=== PATIENT | female | born 1975 | race Caucasian/White ===

== ENCOUNTER 2021-07-17 16:39 | Emergency (ER) | payer OTHER ==
[~2021-07-17] VITALS: Ht 160 cm; Wt 124.0 kg
[2021-07-17] MEDS ORDERED: SODIUM CHLORIDE 0.9% 1,000 ML IV ONE (17:30)
[2021-07-17 17:55] LABS: BASOPHILS % 0.4 % (0.0-2.0); EOSINOPHILS % 5.5 % (0.0-5.0); HEMATOCRIT. 32.4 % (36.0-48.0); HEMOGLOBIN. 11.2 g/dL (12.0-16.0); LYMPHOCYTES % 26.7 % (20.0-50.0); MEAN CORPUSCULAR VOLUME 86.8 fL (81.0-99.0); MEAN PLATELET VOLUME 8.9 fl (7.4-10.4); MONOCYTES % 7.3 % (2.0-8.0); NEUTROPHILS % 60.1 % (40.0-76.0); PLATELET 163 x1000/uL (130-400); RED BLOOD CELL COUNT 3.74 mill/uL (4.2-5.4); RED CELL DISTRIBUTION WIDTH 15.1 % (11.6-14.6)
[2021-07-17 18:03] LABS: CHLORIDE 110 mEq/L (98-107)
[2021-07-17 18:07] LABS: ETHANOL BLOOD < 10 mg/dL
[2021-07-17 18:07] LABS: CLARITY URINE CLOUDY (CLEAR); COLOR URINE YELLOW (YELLOW); KETONES URINE NEGATIVE (NEGATIVE); LEUKOCYTE ESTERASE URINE 1+ (NEGATIVE); NITRITE URINE NEGATIVE (NEGATIVE); OCCULT BLOOD URINE NEGATIVE (NEGATIVE); PH URINE 6.5 (4.5-8.0); PROTEIN URINE NEGATIVE (NEGATIVE); SPECIFIC GRAVITY URINE 1.008 (1.005-1.030); UROBILINOGEN URINE 0.2 E.U./dL (0.2-1.0)
[2021-07-17 18:32] LABS: *AMPHETAMINES SCREEN URINE NEGATIVE (NEGATIVE)
[2021-07-17 18:33] LABS: *BARBITURATES SCREEN URINE NEGATIVE (NEGATIVE); *COCAINE SCREEN URINE NEGATIVE (NEGATIVE); METHADONE URINE SCREEN NEGATIVE (NEGATIVE); OPIATES URINE SCREEN NEGATIVE (NEGATIVE); PHENCYCLIDINE URINE SCREEN NEGATIVE (NEGATIVE)
[2021-07-17 18:34] LABS: CANNABINOID URINE SCREEN NEGATIVE (NEGATIVE)
[2021-07-17 18:37] LABS: *BENZODIAZEPINES SCREEN URINE PRESUMTIVE POSITIVE (NEGATIVE)
[2021-07-18] MEDS ORDERED: CEPHALEXIN 250MG CAPSULE PO SCH (04:20)
[2021-07-18] MEDS ORDERED: LORAZEPAM 2MG/ML CPJ IM SCH (04:30)
[2021-07-18] MEDS: CEPHALEXIN 250MG CAPSULE PO SCH ×2 (09:24→21:00)
[2021-07-18] MEDS ORDERED: ARIPIPRAZOLE 5MG TABLET PO SCH (10:15)
[2021-07-18] MEDS ORDERED: LITHIUM CARBONATE 150 MG CAPSULE PO SCH (17:00)
[2021-07-18] MEDS ORDERED: QUETIAPINE FUMARATE 50MG TABLET PO SCH (21:00)
[2021-07-19 01:24] VITALS: BP 145/82
== END 2021-07-19 03:40 ==
LOC: EDBD 16:39 → ER 16:39
DX: R45.851 Suicidal ideations (principal); F32.9 Major depressive disorder, single episode, unspecified; E11.9 Type 2 diabetes mellitus without complications
CPT/HCPCS: 36415; 80053; 80305; 80307; 80320; 80329; 81003; 81025; 85025; 93005; 99285; J7030; Z7610; G0480

== ENCOUNTER 2022-01-07 08:59 | Emergency (ER) | payer MEDICAID, OTHER ==
[~2022-01-07] VITALS: Ht 157.5 cm; Wt 123.0 kg
[2022-01-07] MEDS ORDERED: KETOROLAC 15MG/ML VIAL IV ONE (09:15)
[2022-01-07] MEDS ORDERED: SODIUM CHLORIDE 0.9% 1,000 ML IV ONE (09:15)
[2022-01-07] MEDS ORDERED: ONDANSETRON HCL 4MG/2ML INJ IV ONE (09:15)
[2022-01-07] MEDS ORDERED: ASPIRIN 81MG TABLET PO ONE (09:15)
[2022-01-07 10:22] LABS: BASOPHILS % 0.6 % (0.0-2.0); EOSINOPHILS % 3.3 % (0.0-5.0); HEMATOCRIT. 35.2 % (36.0-48.0); HEMOGLOBIN. 12.4 g/dL (12.0-16.0); LYMPHOCYTES % 22.8 % (20.0-50.0); MEAN CORPUSCULAR HEMOGLOBIN 30.1 pg (28.0-32.0); MEAN CORPUSCULAR VOLUME 85.2 fL (81.0-99.0); MEAN PLATELET VOLUME 9.1 fl (7.4-10.4); MONOCYTES % 5.6 % (2.0-8.0); NEUTROPHILS % 67.7 % (40.0-76.0); PLATELET 196 x1000/uL (130-400); RED BLOOD CELL COUNT 4.13 mill/uL (4.2-5.4); RED CELL DISTRIBUTION WIDTH 14.5 % (11.6-14.6)
[2022-01-07 10:27] LABS: CHLORIDE 103 mEq/L (98-107)
[2022-01-07 10:42] LABS: CLARITY URINE CLEAR (CLEAR); COLOR URINE YELLOW (YELLOW); KETONES URINE NEGATIVE (NEGATIVE); LEUKOCYTE ESTERASE URINE NEGATIVE (NEGATIVE); NITRITE URINE NEGATIVE (NEGATIVE); OCCULT BLOOD URINE 2+ (NEGATIVE); PROTEIN URINE NEGATIVE (NEGATIVE); SPECIFIC GRAVITY URINE 1.024 (1.005-1.030); UROBILINOGEN URINE 0.2 E.U./dL (0.2-1.0)
[2022-01-07] MEDS ORDERED: MORPHINE SULFATE 4 MG/ML CPJ (NOT FOR IM USE) IV ONE (12:30)
[2022-01-07] MEDS ORDERED: HYDROCODONE/ACETAMINOPHEN 5/325MG TABLET PO ONE (15:00)
[2022-01-07] MEDS ORDERED: IOHEXOL-350 100 ML BOTTLE ONE (15:22)
[2022-01-07] MEDS ORDERED: HYDR-4001 MT (15:47)
[2022-01-07 17:06] VITALS: BP 143/85
== END 2022-01-07 17:07 | disposition home or self-care (01) ==
LOC: ER 15:02
DX: R07.89 Other chest pain (principal); Z20.822 Contact with and (suspected) exposure to COVID-19
CPT/HCPCS: 36415; 71045; 71275; 80053; 81003; 81025; 82962; 83880; 84484; 85025; 85379; 87426; 87804; 93005; 96361; 96374; 96375; 99285; J1885; J2270; J2405; J7030; Q9967; Z7610

== ENCOUNTER 2022-02-02 15:44 | Emergency (ER) | payer MEDICAID ==
[~2022-02-02] VITALS: Ht 167.6 cm; Wt 101.0 kg
[~2022-02-02 15:44] MED LIST: HYDR-4001 MT
[2022-02-02] MEDS ORDERED: SODIUM CHLORIDE 0.9% 1,000 ML IV ONE (16:30)
[2022-02-02] MEDS ORDERED: NITROGLYCERIN OINT 1GM/INCH UDPKT TD ONE (16:30)
[2022-02-02] MEDS ORDERED: CEFTRIAXONE 1 G PREMIX 50 ML IV ONE (16:30)
[2022-02-02 16:58] LABS: BASOPHILS % 0.6 % (0.0-2.0); EOSINOPHILS % 3.5 % (0.0-5.0); HEMATOCRIT. 37.3 % (36.0-48.0); HEMOGLOBIN. 12.3 g/dL (12.0-16.0); LYMPHOCYTES % 22.3 % (20.0-50.0); MEAN CORPUSCULAR HEMOGLOBIN 28.9 pg (28.0-32.0); MEAN CORPUSCULAR VOLUME 87.6 fL (81.0-99.0); MEAN PLATELET VOLUME 10.3 fl (7.4-10.4); MONOCYTES % 6.6 % (2.0-8.0); PLATELET 149 x1000/uL (130-400); RED BLOOD CELL COUNT 4.26 mill/uL (4.2-5.4); RED CELL DISTRIBUTION WIDTH 14.3 % (11.6-14.6)
[2022-02-02 17:00] LABS: CLARITY URINE CLEAR (CLEAR); COLOR URINE YELLOW (YELLOW); KETONES URINE NEGATIVE (NEGATIVE); LEUKOCYTE ESTERASE URINE NEGATIVE (NEGATIVE); NITRITE URINE NEGATIVE (NEGATIVE); OCCULT BLOOD URINE NEGATIVE (NEGATIVE); PH URINE 6.5 (4.5-8.0); PROTEIN URINE NEGATIVE (NEGATIVE); SPECIFIC GRAVITY URINE 1.034 (1.005-1.030); UROBILINOGEN URINE 0.2 E.U./dL (0.2-1.0)
[2022-02-02 17:01] LABS: CHLORIDE 98 mEq/L (98-107)
[2022-02-02 17:12] LABS: BETA HYDROXYBUTYRATE 0.1 mMol/L (0.0-0.3)
[2022-02-02] MEDS ORDERED: INSULIN REGULAR (HUMULIN R) 300UNITS/3ML VIAL SUBCUT NR (17:45)
[2022-02-02 20:18] VITALS: BP 140/88
== END 2022-02-02 20:20 | disposition left against medical advice (07) ==
LOC: ER 15:44 → EDBEDREQTM 17:38 → EDBEDREQ 17:38 → ER 20:20 → CANBEDREQ 02-03 00:29
DX: R07.89 Other chest pain (principal); E11.65 Type 2 diabetes mellitus with hyperglycemia; L02.211 Cutaneous abscess of abdominal wall; F32.9 Major depressive disorder, single episode, unspecified; E78.00 Pure hypercholesterolemia, unspecified
CPT/HCPCS: 36415; 71045; 80053; 81003; 82010; 82962; 84484; 85025; 87040; 96365; 96372; 99284; J0696; J1815; J7030

== ENCOUNTER 2022-11-11 14:42 | Emergency (ER) | payer OTHER ==
[~2022-11-11] VITALS: Ht 154.9 cm; Wt 79.0 kg
[2022-11-11 15:30] VITALS: BP 145/85
[2022-11-11] MEDS ORDERED: IBUPROFEN 400MG TABLET PO ONE (18:30)
[2022-11-11] MEDS ORDERED: HYDR-4001 MT (19:54)
[2022-11-11] MEDS ORDERED: IBUP-2028 MT (19:54)
== END 2022-11-12 00:01 | disposition home or self-care (01) ==
LOC: ER 14:42
DX: S52.512A Displaced fracture of left radial styloid process, initial encounter for closed fracture (principal); F32.A Depression, unspecified; E11.9 Type 2 diabetes mellitus without complications; E78.00 Pure hypercholesterolemia, unspecified; Z85.528 Personal history of other malignant neoplasm of kidney; Z88.8 Allergy status to other drugs, medicaments and biological substances; W01.0XXA Fall on same level from slipping, tripping and stumbling without subsequent striking against object, initial encounter; Y93.89 Activity, other specified; Y92.018 Other place in single-family (private) house as the place of occurrence of the external cause
CPT/HCPCS: 29125; 73090; 73110; 73130; 99284

== ENCOUNTER 2023-04-03 10:53 | Emergency (ER) | payer OTHER ==
[~2023-04-03] VITALS: Ht 167.6 cm; Wt 93.0 kg
[~2023-04-03 10:53] MED LIST changes: +IBUP-2028 MT
[2023-04-03 10:57] VITALS: BP 135/88
== END 2023-04-03 11:47 | disposition left against medical advice (07) ==
LOC: ER 10:53
DX: T43.221A Poisoning by selective serotonin reuptake inhibitors, accidental (unintentional), initial encounter (principal); X58.XXXA Exposure to other specified factors, initial encounter; F32.9 Major depressive disorder, single episode, unspecified; E11.9 Type 2 diabetes mellitus without complications; E78.00 Pure hypercholesterolemia, unspecified
CPT/HCPCS: 99283

== ENCOUNTER 2024-03-07 06:13 | Emergency (ER) | payer OTHER ==
[~2024-03-07] VITALS: Ht 172.7 cm; Wt 103.0 kg
[2024-03-07 06:17] VITALS: O2SAT 99
[2024-03-07] MEDS ORDERED: ONDANSETRON HCL 4MG/2ML INJ IV STA (06:24)
[2024-03-07] MEDS ORDERED: KETOROLAC 30MG/ML VIAL IV STA (06:24)
[2024-03-07 08:36] LABS: CHLORIDE 102 mEq/L (98-107); POTASSIUM 3.7 mEq/L (3.5-5.1); SODIUM 134 mEq/L (136-145)
[2024-03-07 08:37] LABS: CALCIUM 8.6 mg/dL (8.7-10.4); CARBON DIOXIDE 25 mEq/L (21-32)
[2024-03-07 08:38] LABS: BASOPHILS % 0.9 % (0.0-2.0); EOSINOPHILS % 13.9 % (0.0-5.0); HEMATOCRIT. 36.7 % (36.0-48.0); HEMOGLOBIN. 12.1 g/dL (12.0-16.0); LYMPHOCYTES % 42.8 % (20.0-50.0); MEAN CORPUSCULAR HEMOGLOBIN 29.7 pg (28.0-32.0); MEAN CORPUSCULAR VOLUME 89.9 fL (81.0-99.0); MEAN PLATELET VOLUME 9.9 fl (7.4-10.4); MONOCYTES % 14.2 % (2.0-8.0); NEUTROPHILS % 28.2 % (40.0-76.0); PLATELET 203 x1000/uL (130-400); RED BLOOD CELL COUNT 4.09 mill/uL (4.2-5.4); RED CELL DISTRIBUTION WIDTH 14.5 % (11.6-14.6); WHITE BLOOD COUNT 4.8 x1000/uL (4.5-11.0)
[2024-03-07 08:41] LABS: HCG SCREEN NEGATIVE
[2024-03-07 08:42] LABS: CREATININE 1.2 mg/dL (0.6-1.0); GLUCOSE 91 mg/dL (70-105); TROPONIN I HIGH SENSITIVITY 14 ng/L (3.0-34)
[2024-03-07 08:44] LABS: ALANINE AMINOTRANSFERASE 15 IU/L (10-49); ALBUMIN 3.5 g/dL (3.2-4.8); ASPARTATE AMINOTRANSFERASE 59 IU/L (<34); BILIRUBIN TOTAL 0.5 mg/dL (0.1-1.0); PROTEIN TOTAL 6.9 g/dL (6.0-8.3); UREA NITROGEN BLOOD < 5 mg/dL (9-23)
[2024-03-07] MEDS: SODIUM CHLORIDE 0.9% 1,000 ML IV ONE (09:32)
[2024-03-07] MEDS: KETOROLAC 30MG/ML VIAL IV NR (09:39)
[2024-03-07] MEDS: ONDANSETRON HCL 4MG/2ML INJ IV NR (09:40)
[2024-03-07] MEDS: MORPHINE SULFATE 4 MG/ML INJ (FOR IV/IM USE) IV ONE (10:26)
[2024-03-07 11:20] VITALS: BP 97/54; PULSE 89; RESP 15; TEMP 97.8
== END 2024-03-07 12:00 | disposition short-term general hospital (02) ==
LOC: ER 06:19 → CANBEDREQ 10:15 → ER 12:00
DX: R11.2 Nausea with vomiting, unspecified (principal); R19.7 Diarrhea, unspecified; E11.9 Type 2 diabetes mellitus without complications; F32.A Depression, unspecified; E78.00 Pure hypercholesterolemia, unspecified; Z85.9 Personal history of malignant neoplasm, unspecified; Z88.8 Allergy status to other drugs, medicaments and biological substances
CPT/HCPCS: 80053; 84703; 83690; 85025; 84484; 36415; 71045; 96361; 96374; 96375; 99284; J1885; J2405; J2270; J7030; Z7610 ×3